=== PATIENT | male | born 2000 | race Caucasian/White ===

== ENCOUNTER 2019-09-03 15:09 | Outpatient (CLI) | payer BC ==
--- NOTE | 2019-09-03 16:12 | ULT ---
Thyroid sonogram HISTORY: Hyperthyroidism. FINDINGS: Each thyroid lobe has a homogeneous echotexture without focal mass. Centered within the apex of the isthmus is a smoothly marginated oval homogeneous hypoechoic mass lindsay t is 0.7 cm width by 0.4 cm depth. IMPRESSION: Solitary nonaggressive appearing nodule within the thyroid isthmus. TI RADS 4. Given the small size, however, no further workup is needed.
== END 2019-09-03 15:10 | disposition home or self-care (01) ==
LOC: SCSULT 15:09
PROVIDERS: ATTEND Family Medicine
DX: E05.90 Thyrotoxicosis, unspecified without thyrotoxic crisis or storm (principal); E04.1 Nontoxic single thyroid nodule
CPT/HCPCS: 76536

== ENCOUNTER 2019-09-11 14:38 | Outpatient (CLI) | payer BC ==
--- NOTE | 2019-09-11 15:56 | MRI ---
MRI BRAIN WITH AND WITHOUT IV CONTRAST: HISTORY: Seizure-like activity COMPARISON: None CORRELATION: None FINDINGS: No restricted diffusion is seen. No evidence of infarct, hemorrhage, mass, midline shift or abnormal extra-axial fluid collections is noted. No abnormal postcontrast enhancement is seen. No signal abnormalities are seen on the highly sensitive FLAIR images. No blood products are seen on the gradie nt echo sequences. The ventricular size is appropriate and the basilar cisterns are patent. The visualized paranasal sinuses and mastoid air cells are well aerated. IMPRESSION: Normal exam
== END 2019-09-11 14:39 | disposition home or self-care (01) ==
LOC: SCSMRI 14:38
PROVIDERS: ATTEND Family Medicine
DX: R56.9 Unspecified convulsions (principal)
CPT/HCPCS: 70553